=== PATIENT | female | born 1945 | race Caucasian/White ===

== ENCOUNTER 2019-04-13 14:44 | Emergency (ER) | payer OTHER, BC ==
--- NOTE | 2019-04-13 15:10 | PDOC ---
History of Present Illness - General Chief Complaint: Injury Stated Complaint: ELBOW INJURY Time Seen by Provider: 04/13/19 14:56 History Source: Patient Exam Limitations: No Limitations - History of Present Illness Initial Comments: 04/13/19 15:05 CHIEF COMPLAINT: Attacked by a dog yesterday and fell backwards HISTORY OF PRESENT ILLNESS: 74-year-old female was taking out the garbage yesterday when a neighborhood aggressive dog came out her. She backed up very quickly and then fell backwards hitting her left elbow on the ground. She denies any other injuries. However, in the past she had 2 thoracic compression fractures at the T10 and T12 level. She denies acute pain in that region today. She denies any acute back pain. She denies any head injury or neck injury, and she denies any loss of consciousness. REVIEW OF SYSTEMS: No headache No neck pain No nausea or vomiting Positive left elbow pain No new back pain Past History - Past Medical History Allergies/Adverse Reactions: Allergies Allergy/AdvReac Type Severity Reaction Status Date / Time No Known Allergies Allergy Verified 04/18/12 13:08 Home Medications: Ambulatory Orders Pravastatin Sodium [Pravachol -] 20 mg PO DAILY 04/18/12 Amlodipine Besylate 5 mg PO DAILY 04/13/19 Cyclobenzaprine HCl 5 mg PO DAILY PRN 04/13/19 Lisinopril 20 mg PO DAILY 04/13/19 Oxycodone HCl/Acetaminophen [Percocet 5-325 mg Tablet] 1 tab PO Q6H PRN HTN: Yes Hypercholesterolemia: Yes - Psycho Social/Smoking Cessation Hx Smoking Status: Yes Smoking History: Former smoker Number of Cigarettes Smoked Daily: 0 *Physical Exam - Physical Exam Comments: 04/13/19 15:07 GENERAL: The patient is awake, alert, and fully oriented, in no acute distress. HEAD: Normal with no signs of trauma. No scalp tenderness. NECK: Normal range of motion of the neck, no bony tenderness. EYES: Pupils equal, round and reactive to light, extraocular movements intact, sclera anicteric, conjunctiva clear. BACK: There is no bony spine tenderness. EXTREMITIES: Normal range of motion, no edema. The left elbow has a small area of ecchymosis overlying the medial epicondyles. Extension and flexion is full. Pronation and supination is normal. There is mild swelling over the medial epicondyle. Given the excellent range of motion, there is no concern for an acute fracture. NEUROLOGICAL: Normal speech, normal gait. Lower extremities full-strength. Upper extremities full strength. No sensory deficits. PSYCH: Normal mood, normal affect. SKIN: Warm, Dry, normal turgor, no rashes or lesions noted beyond the small area of ecchymosis overlying the left medial epicondyle. Medical Decision Making - Medical Decision Making 04/13/19 15:08 Patient was attacked by an aggressive dog. She was not bitten, however she fell back when backing away and injured her left elbow. She has a contusion on her left elbow with a small area of ecchymosis. Examination is negative for any likely fracture. Patient declines x-ray and will follow her symptoms clinically. Impression: Threatened by dog Left elbow contusion without fracture, small ecchymosis Skin intact throughout Discharge - Discharge Information Problems reviewed: Yes Clinical Impression/Diagnosis: Left elbow contusion Qualifiers: Encounter type: initial encounter Qualified Code(s): S50.02XA - Contusion of left elbow, initial encounter Condition: Stable Disposition: HOME - Admission No - Follow up/Referral Referrals: Akanksha Foley [Primary Care Provider] - - Patient Discharge Instructions Patient Printed Discharge Instructions: DI for Contusion Additional Instructions: Today you were evaluated for an elbow injury. There is some bruising on the left elbow. The range of motion is good and there are no signs of fracture on examination. You are advised to apply ice packs for pain or swelling, 20 minutes every few hours today and tomorrow. Take Tylenol or Motrin as needed for pain. Follow-up with your doctor if the symptoms have not improved within 1 week. Return to the emergency department for any severe or progressive symptoms. - Post Discharge Activity
[2019-04-13 15:23] VITALS: BP 200/100; PULSE 74; TEMP 98.1; BMI 23.6
== END 2019-04-13 15:21 | disposition home or self-care (01) ==
LOC: FER 14:44
DX: S50.02XA Contusion of left elbow, initial encounter (principal); W18.39XA Other fall on same level, initial encounter; Y93.89 Activity, other specified; Y92.480 Sidewalk as the place of occurrence of the external cause; I10 Essential (primary) hypertension; E78.00 Pure hypercholesterolemia, unspecified; Z87.891 Personal history of nicotine dependence
CPT/HCPCS: 99281-25